=== PATIENT | female | born 1975 | race Caucasian/White ===

== ENCOUNTER 2023-04-23 10:08 | Day surgery (SDC) | payer OTHER ==
[2023-04-23 10:51] VITALS: BMI 38.6
[2023-04-23 10:56] LABS: Hematocrit 46.3 % (34.9-44.5)
[2023-04-23 10:59] LABS: BHCG - Serum Negative (NEGATIVE); Pregs Control Background? CLEAR/WHITE (CLR/WHITE); Pregs Control Bar Appear? YES (CONTROL BAR)
[2023-04-23] MEDS ORDERED: Lidocaine 1% w/Epinephrine 1:100K 20 ML VIAL ONE (12:49)
[2023-04-23] MEDS ORDERED: Mupirocin 2% Ointment 22 GM Tube ONE (12:49)
[2023-04-23] MEDS ORDERED: Succinylcholine 200 MG/10 ml SYRINGE FS ONE (12:53)
[2023-04-23] MEDS ORDERED: Lidocaine 1% PF 5 ML VIAL ONE (12:53)
[2023-04-23] MEDS ORDERED: PROPOFOL 20 ML ONE (12:53)
[2023-04-23] MEDS ORDERED: Midazolam HCl 2 mg/2 ml Vial ONE (13:31)
[2023-04-23] MEDS ORDERED: fentaNYL 50 mcg/mL 1 mL Vial ONE ×2 (13:36)
[2023-04-23] MEDS ORDERED: Esmolol 100 MG/10 ML VIAL ONE (13:37)
[2023-04-23] MEDS ORDERED: Ketorolac Tromethamine 30 MG/ML VIAL ONE (14:13)
[2023-04-23] MEDS ORDERED: Acetaminophen 500 MG TAB ONE (14:57)
== END 2023-04-23 15:22 | disposition home or self-care (01) ==
LOC: CSHSDC 10:08
PROVIDERS: ATTEND Otolaryngology Plastic Surgery within the Head & Neck
PROC: 0H94XZZ Drainage of Neck Skin, External Approach (ICD-10-PCS; principal; 2023-04-23)
DX: E89.822 Postprocedural seroma of an endocrine system organ or structure following an endocrine system procedure (principal); E07.9 Disorder of thyroid, unspecified; G43.909 Migraine, unspecified, not intractable, without status migrainosus; Z90.89 Acquired absence of other organs; Z88.5 Allergy status to narcotic agent; Z79.899 Other long term (current) drug therapy; Z79.891 Long term (current) use of opiate analgesic
CPT/HCPCS: 36415; 84703; 85014; J1885; J2250; J2704; J3010